=== PATIENT | female | born 1955 | race African-American/Black ===

== ENCOUNTER 2025-01-21 10:00 | Outpatient (CLI) | payer MEDICARE ==
[2025-01-21 14:09] LABS: Estimated GFR - POC 96.0
[2025-01-21] MEDS ORDERED: Iopamidol 370 76% 100 ML VIAL ONE (14:09)
== END 2025-01-21 10:01 | disposition home or self-care (01) ==
LOC: CSHCT 10:00
PROVIDERS: ATTEND Internal Medicine
DX: R91.8 Other nonspecific abnormal finding of lung field (principal); J44.9 Chronic obstructive pulmonary disease, unspecified
CPT/HCPCS: 71260; 82565; 94010; 94726; 94729; 94760; Q9967